=== PATIENT | male | born 1965 | race Caucasian/White ===

== ENCOUNTER 2020-06-19 06:21 | Day surgery (SDC) | payer OTHER, SELFPAY ==
[~2020-06-19] VITALS: Ht 168 cm; Wt 68.0 kg
[2020-06-19] MEDS ORDERED: CLINDAMYCIN PHOSPHATE 900 mg/50mL D5W IV ONE (07:25)
[2020-06-19] MEDS ORDERED: METOCLOPRAMIDE HCL 10 MG/2 ML VIAL IVP ONE (07:25)
[2020-06-19] MEDS ORDERED: BUPIVACAINE /EPINEPHRINE/PF 0.25% 30 ML VIAL INJ ONE (07:25)
[2020-06-19] MEDS ORDERED: BUPIVACAINE LIPOSOME/PF 266 MG/20 ML VIAL INFIL ONE ×2 (07:25→08:55)
[2020-06-19] MEDS ORDERED: SEVOFLURANE 15 MIN GAS INH ONE (07:25)
[2020-06-19] MEDS ORDERED: ROCURONIUM BROMIDE 10 MG/ML (ZEMURON) IV ONE (07:25)
[2020-06-19] MEDS ORDERED: NS IRRIG SOLN 1000 ML IR ONE (07:25)
[2020-06-19] MEDS ORDERED: PROPOFOL 200MG/ 20ML VIAL (DIPRIVAN) IV ONE (07:25)
[2020-06-19] MEDS ORDERED: SUCCINYLCHOLINE CHLORIDE 20 MG/ML(QUELICIN) IVP ONE (07:25)
[2020-06-19] MEDS ORDERED: LR 1,000 ML IV.SOLN IV ONE (07:25)
[2020-06-19] MEDS ORDERED: fentaNYL CITRATE/PF 100 MCG/2 ML AMP IVP ONE (07:25)
[2020-06-19] MEDS ORDERED: POLYMYXIN 500,000/BACIT.10,000 UNITS in NS IRR 1 L IR ONE (07:31)
[2020-06-19] MEDS ORDERED: HYDROmorphone 1 MG INJ. 1 MG/ML AMPUL IVP PRN (08:30)
[2020-06-19] MEDS ORDERED: METOCLOPRAMIDE HCL 10 MG/2 ML VIAL IVP PRN (08:30)
[2020-06-19] MEDS ORDERED: HYDROcodone/ACETAMIN 5-325 MG TAB (NORCO/ VICODIN) PO PRN (09:45)
[2020-06-19] MEDS ORDERED: HYDROmorphone 1 MG INJ. 1 MG/ML AMPUL IM PRN (09:45)
[2020-06-19] MEDS ORDERED: ONDANSETRON HCL 4 MG/2 ML VIAL IVP PRN (09:45)
[2020-06-19] MEDS ORDERED: D5/0.45 NS 1,000 ML IV SCH (09:45)
[2020-06-19 10:35] VITALS: BP_SYST 114
[2020-06-19] MEDS ORDERED: HYDROcodone/ACETAMIN 5-325 MG TAB (NORCO/ VICODIN) ONE (11:29)
== END 2020-06-19 11:38 | disposition still patient (30) ==
LOC: SDS 06:21 → SMU 06:23 → SDS 11:38
PROVIDERS: ATTEND Surgery
DX: K40.90 Unilateral inguinal hernia, without obstruction or gangrene, not specified as recurrent (principal); I10 Essential (primary) hypertension; E78.5 Hyperlipidemia, unspecified; K21.9 Gastro-esophageal reflux disease without esophagitis; Z79.899 Other long term (current) drug therapy
CPT/HCPCS: 36415; 49650; 87426; C1727; C1781; C9290; J0330; J2704; J2765; J3010; J3490 ×2; J7120; S2900